=== PATIENT | male | born 1935 | race Hispanic/Latino ===

== ENCOUNTER 2020-05-09 10:31 | Inpatient (IN) | payer OTHER ==
[~2020-05-09] VITALS: Ht 162.6 cm; Wt 82.6 kg
[2020-05-09] VITALS (9 sets, daily range): BP systolic 142–167; BP diastolic 78–104
[2020-05-09 11:12] LABS: CREATININE 1.4 mg/dL (0.5-1.5); POTASSIUM 4.1 mmol/L (3.5-5.1)
[2020-05-09 11:14] LABS: BASOPHILS % (AUTO) 0.1 % (0.0-5.0); HEMATOCRIT 50.3 % (42-54); LYMPHOCYTES % (AUTO) 2.9 % (21.0-51.0); MEAN CORPUSCULAR HGB CONC 32.8 g/dL (32.0-36.0); MEAN CORPUSCULAR VOLUME 88.4 fL (79-99); MONOCYTES % (AUTO) 1.2 % (3.0-13.0); NEUTROPHILS % (AUTO) 95.4 % (40.0-77.0); PLATELET COUNT (AUTO) 150 K/uL (130-400); RED BLOOD CELL COUNT(AUTO) 5.69 MIL/uL (4.50-6.20); RED CELL DISTRIBUTION WIDTH 16.5 % (11.0-15.5); WHITE BLOOD COUNT (AUTO) 11.8 K/uL (4.8-10.8)
[2020-05-09 11:19] LABS: ALBUMIN 3.2 g/dL (3.5-5.0); BILIRUBIN,TOTAL 0.8 mg/dL (0.2-1.0); TOTAL PROTEIN, SERUM 8.2 g/dL (6.0-8.3)
[2020-05-09] MEDS ORDERED: METHYLPREDNISOLONE SOD SUCC 40MG/ML 1ML ONE (11:47)
[2020-05-09] MEDS ORDERED: ENOXAPARIN SODIUM 80 MG/0.8 ML SQ ONE (11:47)
[2020-05-09] MEDS ORDERED: LABETALOL 20 MG/4 ML DISP.SYRIN IV PRN (12:15)
[2020-05-09] MEDS ORDERED: LOPERAMIDE 1 MG/7.5 ML UDCUP PO PRN (12:15)
[2020-05-09] MEDS: FUROSEMIDE 10 MG/ML 4ML VIAL IV SCH (12:15)
[2020-05-09] MEDS ORDERED: HYDRALAZINE HCL 20 MG/ML VIAL IV PRN (12:15)
[2020-05-09] MEDS ORDERED: LACTULOSE 20 GM/30 ML UDCUP PO PRN (12:15)
[2020-05-09] MEDS: DOXYCYCLINE 100MG+NS 250ML IV SCH (12:15)
[2020-05-09] MEDS ORDERED: ACETAMINOPHEN 325 MG TAB PO PRN (12:15)
[2020-05-09] MEDS: CEFTRIAXONE SODIUM 1 GM IVP SCH (12:15)
[2020-05-09] MEDS ORDERED: ONDANSETRON HCL 4 MG/2 ML VIAL IVP PRN (12:15)
[2020-05-09] MEDS ORDERED: FUROSEMIDE 10 MG/ML 4ML VIAL ONE (12:26)
[2020-05-09] MEDS ORDERED: DOXYCYCLINE 100MG+NS 250ML 250 ML IV ONE (12:26)
[2020-05-09] MEDS ORDERED: CEFTRIAXONE SODIUM 1 GM ONE (12:27)
[2020-05-09 12:34] LABS: BASOPHILS % (AUTO) 0.2 % (0.0-5.0); EOSINOPHILS % (AUTO) 1.3 % (0.0-8.0); HEMATOCRIT 46.3 % (42-54); LYMPHOCYTES % (AUTO) 2.4 % (21.0-51.0); MEAN CORPUSCULAR HEMOGLOBIN 29.2 pg (27.0-33.0); MEAN CORPUSCULAR HGB CONC 33.3 g/dL (32.0-36.0); MEAN CORPUSCULAR VOLUME 87.9 fL (79-99); MONOCYTES % (AUTO) 2.3 % (3.0-13.0); NEUTROPHILS % (AUTO) 93.4 % (40.0-77.0); PLATELET COUNT (AUTO) 132 K/uL (130-400); RED BLOOD CELL COUNT(AUTO) 5.27 MIL/uL (4.50-6.20); RED CELL DISTRIBUTION WIDTH 16.5 % (11.0-15.5); WHITE BLOOD COUNT (AUTO) 12.7 K/uL (4.8-10.8)
[2020-05-09 12:49] LABS: ALANINE AMINOTRANSFERASE 23 U/L (12-78); ALBUMIN 2.9 g/dL (3.5-5.0); ASPARTATE AMINOTRANSFERASE 27 U/L (10-37); BILIRUBIN,DIRECT 0.3 mg/dL (0.0-0.3); BILIRUBIN,TOTAL 0.6 mg/dL (0.2-1.0); CARBON DIOXIDE 32 mmol/L (21-32); CHLORIDE 102 mmol/L (101-111); CREATININE 1.4 mg/dL (0.5-1.5); GLOMERULAR FILTR. RATE CALC 51 mL/min (>60); GLUCOSE,RANDOM 153 mg/dL (70-105); PHOSPHORUS 2.9 mg/dL (2.5-4.9); SODIUM SERUM 137 mmol/L (136-145); TOTAL PROTEIN, SERUM 7.5 g/dL (6.0-8.3); UREA NITROGEN, BLOOD 28 mg/dL (7-18)
[2020-05-09 13:30] LABS: ABG BASE EXCESS -0.1 mmol/L (-2.0-3.0); ABG HCO3 24.3 mmol/L (21.0-28.0); ABG OXYGEN SATURATION 89.7 % (95.0-99.0); ABG PCO2 39 mmHg (35-48)
[2020-05-09 13:52] LABS: B-TYPE NATRIURETIC PEPTIDE 503 pg/mL (0-100)
[2020-05-09] MEDS ORDERED: AMLO2.5T2 PO (16:16)
[2020-05-09] MEDS ORDERED: PREG75CA75 PO (16:16)
[2020-05-09] MEDS ORDERED: LORA10TA7 PO (16:16)
[2020-05-09] MEDS ORDERED: APIX5TAB PO (16:16)
[2020-05-09] MEDS ORDERED: MONT10TA26 PO (16:16)
[2020-05-09] MEDS ORDERED: LISI-617 PO (16:16)
[2020-05-09] MEDS ORDERED: ASCO500T20 PO (16:16)
[2020-05-09] MEDS ORDERED: FURO20TA4 PO (16:16)
[2020-05-09] MEDS ORDERED: SIMV-43 PO (16:16)
[2020-05-09] MEDS ORDERED: ZINC50TA71 PO (16:16)
[2020-05-09] MEDS ORDERED: TAMS-1 PO (16:16)
[2020-05-09] MEDS ORDERED: LEVO25TA54 PO (16:16)
[2020-05-09] MEDS ORDERED: PANT40TA54 PO (16:16)
[2020-05-09] MEDS ORDERED: METH4TAB15 PO (16:16)
[2020-05-09] MEDS ORDERED: PHARMACY COMMUNICATION**REMDESIVIR ORDER MISC SCH (18:30)
[2020-05-09] MEDS: SIMVASTATIN 20 MG TABLET PO SCH (20:10)
[2020-05-09] MEDS: DILTIAZEM HCL 5 MG/ML 10 ML VIAL IV SCH (20:10)
[2020-05-09] MEDS: ENOXAPARIN SODIUM 40 MG/0.4 ML SYRINGE SQ SCH (20:10)
[2020-05-09] MEDS: FAMOTIDINE 20MG TAB 20 MG TAB PO SCH (20:10)
[2020-05-09] MEDS: DILTIAZEM HCL 125 MG/25 ML 125 MG in SODIUM CHLORIDE 0.9% 100 ML IV SCH (21:47)
--- NOTE | 2020-05-09 21:49 | NUR ---
scot khan i started the drip at 2019. heart rate was 115
[2020-05-10] VITALS (55 sets, daily range): BP systolic 113–171; BP diastolic 54–102
[2020-05-10] MEDS: DOXYCYCLINE 100MG+NS 250ML IV SCH (00:15)
[2020-05-10] MEDS ORDERED: DOXYCYCLINE HYCLATE 100 MG TABLET PO ONE (00:19)
[2020-05-10] MEDS: CEFTRIAXONE SODIUM 1 GM IVP SCH ×2 (00:32→12:15)
[2020-05-10] MEDS: FUROSEMIDE 10 MG/ML 4ML VIAL IV SCH (00:32)
--- NOTE | 2020-05-10 02:37 | NUR ---
assessment pt. is alert and oriented times 4 no complaints of any pain. patient is on 15 liters nonrebreather sating 91% when prone sating 96%. During shift change the patient converted to afib in the 130's. I gave a 10mgs of cardizem IV push and started a 5 mg cardizem drip at 2020. at 0230 blood pressure is up to 169 systolic 94 diastolic, heart rate 105 so I have increase the cardizem to 10mg an hour. patient very anxious. hourly blood pressures taken.
[2020-05-10 06:12] LABS: CREATININE 1.4 mg/dL (0.5-1.5); POTASSIUM 3.8 mmol/L (3.5-5.1)
[2020-05-10] MEDS: LISINOPRIL 5 MG TABLET PO SCH (07:38)
[2020-05-10] MEDS: MONTELUKAST SODIUM 10 MG TAB PO SCH (07:38)
[2020-05-10] MEDS: FAMOTIDINE 20MG TAB 20 MG TAB PO SCH ×2 (07:39→22:38)
[2020-05-10] MEDS: AMLODIPINE BESYLATE 2.5 MG TAB PO SCH (07:39)
[2020-05-10] MEDS: PREGABALIN 75 MG CAPSULE PO SCH (07:39)
[2020-05-10] MEDS: LORATADINE 10 MG TABLET PO SCH (07:39)
[2020-05-10] MEDS: LEVOTHYROXINE 25 MCG TABLET PO SCH (07:40)
[2020-05-10] MEDS: ASCORBIC ACID 500 MG TAB PO SCH (07:40)
[2020-05-10] MEDS: DEXAMETHASONE SOD PHOSPHATE 4 MG/ML 1ML VIAL IVP SCH (07:50)
[2020-05-10] MEDS: ENOXAPARIN SODIUM 40 MG/0.4 ML SYRINGE SQ SCH ×2 (07:50→22:38)
--- NOTE | 2020-05-10 08:03 | NUR ---
Report given to Paz BHAGAT, Pt currently in stable condition. Bipap in place pt 02 sat at 81% MD and Rt aware, Morning po meds held. Pt transfered to ICU to room 217. Pt in stable condition
--- NOTE | 2020-05-10 08:30 | NUR ---
CARE ACCEPTED REPORT RECEIVED FROM JEN BHAGAT. PT IN RM 217. PT IS A&OX3. VSS. RR ARE EVEN AND NON-LABORED ON BIPAP 07/05 100%. SPO2 87%. PT ATTACHED TO THE [place] MACHINE OPERATOR SHOWING A-FIB RATE 94. CARDIZEM INFUSING AT 10 ML/HR VIA 18 G RAC. SKIN IS W/D/I. BED IS LOCKED & IN THE LOWEST POSITION. SIDE RAILS UP X 2. URINAL WITHIN REACH. CALL LIGHT WITHIN REACH. NAD IS NOTED AT THIS TIME. WILL CONTINUE TO MONITOR PT FOR ANY CHANGES.
[2020-05-10] MEDS: DOXYCYCLINE 100MG+NS 250ML 250 ML IV SCH ×2 (09:00→22:38)
[2020-05-10] MEDS: DILTIAZEM HCL 125 MG/25 ML 125 MG in SODIUM CHLORIDE 0.9% 100 ML IV SCH (10:47)
--- NOTE | 2020-05-10 11:09 | NUR ---
INTUBATION NOTIFIED PT THAT THE [place] MACHINE OPERATOR SPOKE WITH HIS JUDI AND WAS GIVEN AN UPDATE. PER THE [place] MACHINE OPERATOR STATED THAT HE WANTS TO LEAVE AMA. IT WAS EXPLAINED TO THE THAT HE WILL EVENTUALLY NEED TO BE INTUBATED TO PREVENT ANY FURTHER DAMAGE TO THE LUNGS. STATED THAT SHE NEEDED TO TALK TO HER CHILDREN 1ST. PT STATED THAT HE WILL NOT BE INTUBATED AND DOES NOT WANT TO BE INTUBATED. AWAITING TO HEAR BACK FROM AT THIS TIME.
--- NOTE | 2020-05-10 16:15 | NUR ---
CODE STATUS PT STATED THAT HE DOES NOT WANT TO BE INTUBATED. SPOKE WITH THE AND SHE STATED THAT THE FAMILY WANTS HIM TO BE INTUBATED IF HE NEEDS IT. I EXPLAINED THAT THE PATIENT IS IN THE RIGHT MIND TO MAKE HIS DECISION. I EXPLAINED TO THE PATIENT ABOUT A DNR AND HE STATED HE DID NOT WANT TO SIGN A DNR
--- NOTE | 2020-05-10 19:00 | NUR ---
[facility] CM spoke to pt, unable to answer questions at this time, pt is hard hearing, requested to have spouse called. Called spouse, spoke to Yaneth Wynne [phone], discussed dc plans. As per spouse pt is independent prior to admission, lives at home with spouse and son. Pt has a walker, oxygen equipments through [facility], cpap, nebulizer machine, currently seeing Dr Tai. Denies any other equipments/services. Feels safe to go back home, spouse and son able to assist with transportation and needs as necessary. DC plan to home once stable. CM to cont to follow up. Per spouse current addr: [address] [place] [address], faxed update to registration. Addendum: 05/10/20 at 1903 by GREGORY NARAYAN LVN CM Amended: Links added.
[2020-05-10] MEDS: DILTIAZEM HCL 5 MG/ML 10 ML VIAL IV SCH (19:30)
[2020-05-10] MEDS: SIMVASTATIN 20 MG TABLET PO SCH (22:38)
[2020-05-11] VITALS (61 sets, daily range): BP systolic 118–180; BP diastolic 63–110
[2020-05-11 04:00] LABS: ABG BASE EXCESS 1.5 mmol/L (-2.0-3.0); ABG HCO3 25.4 mmol/L (21.0-28.0); ABG OXYGEN SATURATION 82.9 % (95.0-99.0); ABG PCO2 38 mmHg (35-48)
[2020-05-11 04:19] LABS: BASOPHILS % (AUTO) 0.1 % (0.0-5.0); LYMPHOCYTES % (AUTO) 1.4 % (21.0-51.0); MEAN CORPUSCULAR HGB CONC 33.4 g/dL (32.0-36.0); MONOCYTES % (AUTO) 2.4 % (3.0-13.0); NEUTROPHILS % (AUTO) 94.4 % (40.0-77.0); PLATELET COUNT (AUTO) 172 K/uL (130-400); RED BLOOD CELL COUNT(AUTO) 5.75 MIL/uL (4.50-6.20); RED CELL DISTRIBUTION WIDTH 16.9 % (11.0-15.5); WHITE BLOOD COUNT (AUTO) 15.1 K/uL (4.8-10.8)
[2020-05-11 04:36] LABS: ALBUMIN 2.4 g/dL (3.5-5.0); BILIRUBIN,TOTAL 0.9 mg/dL (0.2-1.0); CREATININE 1.4 mg/dL (0.5-1.5); MAGNESIUM 2.2 mg/dL (1.80-2.40); PHOSPHORUS 2.9 mg/dL (2.5-4.9); POTASSIUM 4.3 mmol/L (3.5-5.1); TOTAL PROTEIN, SERUM 7.2 g/dL (6.0-8.3)
[2020-05-11] MEDS: DEXAMETHASONE SOD PHOSPHATE 4 MG/ML 1ML VIAL IVP SCH (09:59)
[2020-05-11] MEDS: DOXYCYCLINE 100MG+NS 250ML 250 ML IV SCH ×2 (09:59→20:24)
[2020-05-11] MEDS: ENOXAPARIN SODIUM 40 MG/0.4 ML SYRINGE SQ SCH ×2 (10:00→20:25)
[2020-05-11] MEDS: LEVOTHYROXINE 25 MCG TABLET PO SCH (10:00)
[2020-05-11] MEDS: FAMOTIDINE 20MG TAB 20 MG TAB PO SCH ×2 (10:00→20:24)
[2020-05-11] MEDS: LORATADINE 10 MG TABLET PO SCH (10:00)
[2020-05-11] MEDS: AMLODIPINE BESYLATE 2.5 MG TAB PO SCH (10:00)
[2020-05-11] MEDS: MONTELUKAST SODIUM 10 MG TAB PO SCH (10:00)
[2020-05-11] MEDS: ASCORBIC ACID 500 MG TAB PO SCH (10:00)
[2020-05-11] MEDS: PREGABALIN 75 MG CAPSULE PO SCH (10:00)
[2020-05-11] MEDS: LISINOPRIL 5 MG TABLET PO SCH (10:00)
--- NOTE | 2020-05-11 19:00 | NUR ---
ACCEPTED CARE ACCEPTED CARE REPORT RECEIVED USING SBAR FORMAT
[2020-05-11] MEDS: CEFTRIAXONE SODIUM 1 GM IVP SCH ×2 (20:25→20:28)
[2020-05-11] MEDS: SIMVASTATIN 20 MG TABLET PO SCH (20:25)
[2020-05-11] MEDS: DILTIAZEM HCL 125 MG/25 ML 125 MG in SODIUM CHLORIDE 0.9% 100 ML IV SCH (21:33)
[2020-05-12] VITALS (44 sets, daily range): BP systolic 110–192; BP diastolic 46–109
--- NOTE | 2020-05-12 03:15 | NUR ---
QUESTIONABLE ASPIRATION FOUND PATIENT WITH BIPAP MASK OFF. BREATH SOUNDS ARE RHONCHORUS AND COURSE. SUCTIONED FOR A MODERATE AMOUNT OF THIN PINK SECRETIONS. BED IS WET AND A CUP IS ON THE FLOOR. O2 SATS ARE IN THE 60 -70 'S BUT SPO2 PROBE APPEARS TO BE DAMAGED. HEART RATE IS IN THE ONE TEENS, RHYTHM IS AFIB. SPO2 PROBE REPLACED AFTER BIPAP MASK IS SECURED TO PATIENTS FACE AND HE IS REPOSITIONED. SPO2 PROBE SHOW OXYGEN SATURATIONS IN THE HIGH 70'S LOW 80'S. RESPIRATORY MADE BIPAP ADJUSTMENTS IN AN EFFORT TO INCREASE SPO2 LEVELS. WILL MONITOR CLOSELY FOR FURTHER DECLINE. AFTER BIPAP ADJUSTMENTS PATIENT APPEARS TO BE RETURNING TO CLOSE TO BASELINE.
[2020-05-12] MEDS: DEXAMETHASONE SOD PHOSPHATE 4 MG/ML 1ML VIAL IVP SCH (10:07)
[2020-05-12] MEDS: ENOXAPARIN SODIUM 40 MG/0.4 ML SYRINGE SQ SCH ×2 (10:07→20:15)
[2020-05-12] MEDS: DOXYCYCLINE 100MG+NS 250ML 250 ML IV SCH ×2 (10:07→20:13)
[2020-05-12] MEDS: ASCORBIC ACID 500 MG TAB PO SCH (10:09)
[2020-05-12] MEDS: PREGABALIN 75 MG CAPSULE PO SCH (10:09)
[2020-05-12] MEDS: LEVOTHYROXINE 25 MCG TABLET PO SCH (10:09)
[2020-05-12] MEDS: AMLODIPINE BESYLATE 2.5 MG TAB PO SCH (10:09)
[2020-05-12] MEDS: FAMOTIDINE 20MG TAB 20 MG TAB PO SCH ×2 (10:10→20:14)
[2020-05-12] MEDS: LISINOPRIL 5 MG TABLET PO SCH (10:10)
[2020-05-12] MEDS: MONTELUKAST SODIUM 10 MG TAB PO SCH (10:12)
[2020-05-12] MEDS: LORATADINE 10 MG TABLET PO SCH (10:12)
[2020-05-12] MEDS: CEFTRIAXONE SODIUM 1 GM IVP SCH (12:07)
--- NOTE | 2020-05-12 19:00 | NUR ---
ACCEPTED CARE ACCEPTED CARE REPORT RECEIVED USING SBAR FORMAT
[2020-05-12] MEDS: LORAZEPAM 2 MG/ML 1 ML VIAL IVP PRN (20:12)
[2020-05-12] MEDS: MORPHINE SULFATE 2 MG/ML 1ML SYG IVP PRN (20:13)
[2020-05-12] MEDS: SIMVASTATIN 20 MG TABLET PO SCH (20:14)
[2020-05-13] VITALS (13 sets, daily range): BP systolic 91–142; BP diastolic 51–95
[2020-05-13] MEDS: CEFTRIAXONE SODIUM 1 GM IVP SCH ×3 (00:02→21:23)
[2020-05-13 03:45] LABS: BASOPHILS % (AUTO) 0.2 % (0.0-5.0); EOSINOPHILS % (AUTO) 0.7 % (0.0-8.0); HEMATOCRIT 47.8 % (42-54); LYMPHOCYTES % (AUTO) 2.8 % (21.0-51.0); MEAN CORPUSCULAR HEMOGLOBIN 29.1 pg (27.0-33.0); MEAN CORPUSCULAR HGB CONC 33.3 g/dL (32.0-36.0); MEAN CORPUSCULAR VOLUME 87.4 fL (79-99); NEUTROPHILS % (AUTO) 92.7 % (40.0-77.0); PLATELET COUNT (AUTO) 118 K/uL (130-400); RED BLOOD CELL COUNT(AUTO) 5.47 MIL/uL (4.50-6.20); RED CELL DISTRIBUTION WIDTH 17.9 % (11.0-15.5); WHITE BLOOD COUNT (AUTO) 16.5 K/uL (4.8-10.8)
[2020-05-13 04:07] LABS: ALBUMIN 2.1 g/dL (3.5-5.0); CREATININE 1.5 mg/dL (0.5-1.5); MAGNESIUM 3.3 mg/dL (1.80-2.40); TOTAL PROTEIN, SERUM 6.9 g/dL (6.0-8.3)
[2020-05-13] MEDS: MORPHINE SULFATE 2 MG/ML 1ML SYG IVP PRN ×3 (04:18→18:02)
[2020-05-13] MEDS: LORAZEPAM 2 MG/ML 1 ML VIAL IVP PRN ×2 (04:18→15:42)
--- NOTE | 2020-05-13 05:30 | NUR ---
REPORT GIVEN REPORT GIVEN USING SBAR FORMAT. PATIENT TRANSFERRED TO [facility] WITH RT AND 2 RNS. TOLERATED WITHOUT DIFFICULTY.
[2020-05-13] MEDS ORDERED: COMPOUND IV REFRIGERATED 1 EACH IVSOLN MISC PRN (07:00)
[2020-05-13] MEDS: MONTELUKAST SODIUM 10 MG TAB PO SCH (09:00)
[2020-05-13] MEDS: LORATADINE 10 MG TABLET PO SCH (09:00)
[2020-05-13] MEDS: FAMOTIDINE 20MG TAB 20 MG TAB PO SCH ×2 (09:00→21:00)
[2020-05-13] MEDS: LEVOTHYROXINE 25 MCG TABLET PO SCH (09:00)
[2020-05-13] MEDS: PREGABALIN 75 MG CAPSULE PO SCH (09:00)
[2020-05-13] MEDS: ASCORBIC ACID 500 MG TAB PO SCH (09:00)
[2020-05-13] MEDS: LISINOPRIL 5 MG TABLET PO SCH (09:00)
[2020-05-13] MEDS ORDERED: REMDESIVIR (EUA) 520 200 MG in SODIUM CHLORIDE 0.9% 250 ML IV SCH (09:00)
[2020-05-13] MEDS: AMLODIPINE BESYLATE 2.5 MG TAB PO SCH (09:00)
[2020-05-13] MEDS: DOXYCYCLINE 100MG+NS 250ML 250 ML IV SCH ×2 (09:59→21:23)
[2020-05-13] MEDS: DEXAMETHASONE SOD PHOSPHATE 4 MG/ML 1ML VIAL IVP SCH (09:59)
[2020-05-13] MEDS: ENOXAPARIN SODIUM 40 MG/0.4 ML SYRINGE SQ SCH ×2 (10:03→21:24)
[2020-05-13] MEDS: DEXTROSE 5%-WATER 1,000 ML IV SCH (12:31)
--- NOTE | 2020-05-13 16:30 | NUR ---
REPOSITIONED FOR COMFORT. BIPAP REMAINS IN PLACE. SITTER MONITORING PT.
--- NOTE | 2020-05-13 16:48 | NUR ---
RECEIVED CALL FROM PT.'S SPOUSE, JUDI GAMINO, WHO STATES SHE SPOKE WITH HER SON, JOHN GAMINO. PER PT.'S SPOUSE, JOHN GAMINO SPOKE WITH WITH Gretchen GARCIA NP RE:NGT TUBE PLACEMENT FOR TUBE FEEDINGS VS HOSPICE. Lily GAMINO STATES SHE WISHES PT. TO RECEIVE TUBE FEEDINGS VIA NGT, NO HOSPICE AT PRESENT TIME.
[2020-05-13] MEDS: DILTIAZEM HCL 60 MG TABLET NG SCH ×2 (18:30→21:24)
--- NOTE | 2020-05-13 18:45 | NUR ---
RR-35/MIN. ATTEMPTED TO PLACE 14 FR. NGT TO LEFT NARE. UNSUCCESSFUL. PLACED BACK ON BIPAP WITH SAME SETTINGS.
[2020-05-13] MEDS ORDERED: DILTIAZEM HCL 5 MG/ML 10 ML VIAL IV SCH (20:30)
[2020-05-13] MEDS: SIMVASTATIN 20 MG TABLET PO SCH (21:00)
[2020-05-13] MEDS: DILTIAZEM HCL 125 MG/25 ML 125 MG in SODIUM CHLORIDE 0.9% 100 ML IV SCH (22:27)
[2020-05-14] VITALS (8 sets, daily range): BP systolic 105–146; BP diastolic 60–93
[2020-05-14] MEDS: DILTIAZEM HCL 125 MG/25 ML 125 MG in SODIUM CHLORIDE 0.9% 100 ML IV SCH ×4 (00:12→18:37)
[2020-05-14] MEDS: LORAZEPAM 2 MG/ML 1 ML VIAL IVP PRN ×3 (01:40→17:44)
[2020-05-14] MEDS: DILTIAZEM HCL 60 MG TABLET NG SCH ×3 (05:37→18:20)
[2020-05-14 06:09] LABS: BASOPHILS % (AUTO) 0.3 % (0.0-5.0); EOSINOPHILS % (AUTO) 0.1 % (0.0-8.0); HEMATOCRIT 54.1 % (42-54); LYMPHOCYTES % (AUTO) 3.5 % (21.0-51.0); MEAN CORPUSCULAR HEMOGLOBIN 28.5 pg (27.0-33.0); MEAN CORPUSCULAR HGB CONC 33.1 g/dL (32.0-36.0); MEAN CORPUSCULAR VOLUME 86.1 fL (79-99); MONOCYTES % (AUTO) 2.9 % (3.0-13.0); NEUTROPHILS % (AUTO) 92.2 % (40.0-77.0); NUCLEATED RED BLOOD CELLS 0.3 % (0.0-0.19); PLATELET COUNT (AUTO) 70 K/uL (130-400); RED BLOOD CELL COUNT(AUTO) 6.28 MIL/uL (4.50-6.20); WHITE BLOOD COUNT (AUTO) 19.8 K/uL (4.8-10.8)
[2020-05-14 06:40] LABS: ALBUMIN 2.2 g/dL (3.5-5.0); BILIRUBIN,TOTAL 1.4 mg/dL (0.2-1.0); CREATININE 1.6 mg/dL (0.5-1.5); MAGNESIUM 3.5 mg/dL (1.80-2.40); PHOSPHORUS 3.3 mg/dL (2.5-4.9); POTASSIUM 4.3 mmol/L (3.5-5.1); TOTAL PROTEIN, SERUM 6.9 g/dL (6.0-8.3)
[2020-05-14] MEDS: AMLODIPINE BESYLATE 2.5 MG TAB PO SCH (07:38)
[2020-05-14] MEDS: FAMOTIDINE 20MG TAB 20 MG TAB PO SCH ×2 (07:39→21:00)
[2020-05-14] MEDS: LISINOPRIL 5 MG TABLET PO SCH (07:39)
[2020-05-14] MEDS: LORATADINE 10 MG TABLET PO SCH (07:39)
[2020-05-14] MEDS: MONTELUKAST SODIUM 10 MG TAB PO SCH (07:39)
[2020-05-14] MEDS: PREGABALIN 75 MG CAPSULE PO SCH (07:39)
[2020-05-14] MEDS: LEVOTHYROXINE 25 MCG TABLET PO SCH (07:39)
[2020-05-14] MEDS: ASCORBIC ACID 500 MG TAB PO SCH (07:39)
[2020-05-14] MEDS: DEXAMETHASONE SOD PHOSPHATE 4 MG/ML 1ML VIAL IVP SCH (07:59)
[2020-05-14] MEDS: DOXYCYCLINE 100MG+NS 250ML 250 ML IV SCH ×2 (07:59→22:07)
[2020-05-14] MEDS: DEXTROSE 5%-WATER 1,000 ML IV SCH (08:08)
[2020-05-14] MEDS ORDERED: REMDESIVIR (EUA) 520 100 MG in SODIUM CHLORIDE 0.9% 250 ML IV SCH (09:00)
[2020-05-14] MEDS: ENOXAPARIN SODIUM 40 MG/0.4 ML SYRINGE SQ SCH (09:00)
--- NOTE | 2020-05-14 09:46 | NUR ---
PLT COUNT DOWN TO 70K. WILL CONFIRM WITH ATTENDING MD RE:ADMINISTRATION OF LOVENOX AT SCHEDULED DOSE.
[2020-05-14] MEDS: MORPHINE SULFATE 2 MG/ML 1ML SYG IVP PRN ×2 (09:52→15:56)
[2020-05-14] MEDS: CEFTRIAXONE SODIUM 1 GM IVP SCH (11:51)
--- NOTE | 2020-05-14 13:42 | NUR ---
DR. Sandy RESTREPO IN ROOM ASSESSING PT. AND MAKING CHANGES TO BIPAP. DR. RESTREPO UPDATED ON PT.'S STATUS, ORDERS AND FAMILY'S WISHES BY THIS NURSE, VERBALIZED UNDERSTANDING.
--- NOTE | 2020-05-14 15:58 | NUR ---
NOTIFIED DR. RESTREPO RE:PT. WITH ELEVATED TEMP.
[2020-05-14] MEDS ORDERED: CEFEPIME HCL 1 GM VIAL IVP SCH (17:00)
[2020-05-14] MEDS ORDERED: ACETAMINOPHEN 650 MG SUPPOSITORY RC ONE (17:04)
--- NOTE | 2020-05-14 17:20 | NUR ---
IN AND OUT CATH PERFORMED WITH USE OF 12FR COUDET CATHETER UNDER STERILE TECHNIQUE. PT. TOLERATED.
[2020-05-14 17:47] LABS: APPEARANCE,URINE Cloudy (CLEAR); BILIRUBIN,URINE Negative (NEGATIVE); COLOR,URINE Dark Yellow (YELLOW); GLUCOSE, URINE (UA) Negative (NEGATIVE); KETONES,URINE Negative (NEGATIVE); LEUKOCYTE ESTERASE ,URINE Negative (NEGATIVE); NITRATE,URINE Negative (NEGATIVE); OCCULT BLOOD,URINE Negative (NEGATIVE); PROTEIN,URINE POS 2+ mg/dL (NEGATIVE); UROBILINOGEN,URINE 0.2 mg/dL (0.2-1.0)
[2020-05-14 17:56] LABS: AMORPHOUS SEDIMENT,UR Moderate /LPF (None Seen); BACTERIA,URINE Rare /HPF (None Seen); RBC,URINE 0-1 /HPF (0-1); SQUAMOUS EPITHELIAL CELL,UR 0-2 /HPF (0-2); WBC,URINE 0-1 /HPF (0-1)
[2020-05-14] MEDS: SIMVASTATIN 20 MG TABLET PO SCH (21:00)
[2020-05-14] MEDS: ACETAMINOPHEN 650 MG SUPPOSITORY RC PRN (22:07)
[2020-05-15] MEDS: DILTIAZEM HCL 60 MG TABLET NG SCH ×5 (00:03→20:40)
[2020-05-15] MEDS: DEXTROSE 5%-WATER 1,000 ML IV SCH ×2 (03:05→23:15)
[2020-05-15 03:31] VITALS: BP 105/71
[2020-05-15 06:05] LABS: BASOPHILS % (AUTO) 0.3 % (0.0-5.0); EOSINOPHILS % (AUTO) 0.1 % (0.0-8.0); HEMATOCRIT 51.5 % (42-54); LYMPHOCYTES % (AUTO) 3.2 % (21.0-51.0); MEAN CORPUSCULAR HEMOGLOBIN 29.4 pg (27.0-33.0); MEAN CORPUSCULAR HGB CONC 32.8 g/dL (32.0-36.0); MEAN CORPUSCULAR VOLUME 89.6 fL (79-99); MONOCYTES % (AUTO) 3.2 % (3.0-13.0); NEUTROPHILS % (AUTO) 91.6 % (40.0-77.0); NUCLEATED RED BLOOD CELLS 0.3 % (0.0-0.19); RED BLOOD CELL COUNT(AUTO) 5.75 MIL/uL (4.50-6.20); RED CELL DISTRIBUTION WIDTH 20.3 % (11.0-15.5); WHITE BLOOD COUNT (AUTO) 23.2 K/uL (4.8-10.8)
[2020-05-15 06:27] LABS: ALBUMIN 2.2 g/dL (3.5-5.0); BILIRUBIN,DIRECT 0.8 mg/dL (0.0-0.3); BILIRUBIN,TOTAL 2.2 mg/dL (0.2-1.0); CREATININE 2.2 mg/dL (0.5-1.5); POTASSIUM 4.9 mmol/L (3.5-5.1); TOTAL PROTEIN, SERUM 6.3 g/dL (6.0-8.3)
--- NOTE | 2020-05-15 06:48 | NUR ---
CRITICAL LAB VALUES RESULTED AT 0645. DOCTOR CALLED AT 0649. AWAITING CALL BACK.
[2020-05-15 08:00] VITALS: BP 102/71
--- NOTE | 2020-05-15 08:05 | NUR ---
ASSESSMENT CALL PLACED TO [facility] REGARDING PT'S STATUS, SPOKE TO ROSANNA LINDSEY, MADE AWARE OF LABS
[2020-05-15 08:44] LABS: PLATELET COUNT (AUTO) 21 K/uL (130-400)
[2020-05-15] MEDS: ASCORBIC ACID 500 MG TAB PO SCH (09:00)
[2020-05-15] MEDS ORDERED: CEFEPIME HCL 1 GM VIAL IVP SCH (09:00)
[2020-05-15] MEDS: LEVOTHYROXINE 25 MCG TABLET PO SCH (09:00)
[2020-05-15] MEDS: LISINOPRIL 5 MG TABLET PO SCH (09:00)
[2020-05-15] MEDS: AMLODIPINE BESYLATE 2.5 MG TAB PO SCH (09:00)
[2020-05-15] MEDS: PREGABALIN 75 MG CAPSULE PO SCH (09:00)
[2020-05-15] MEDS: MONTELUKAST SODIUM 10 MG TAB PO SCH (09:00)
[2020-05-15] MEDS: LORATADINE 10 MG TABLET PO SCH (09:00)
[2020-05-15] MEDS: DEXAMETHASONE SOD PHOSPHATE 4 MG/ML 1ML VIAL IVP SCH (09:28)
[2020-05-15] MEDS: DOXYCYCLINE 100MG+NS 250ML 250 ML IV SCH (09:29)
--- NOTE | 2020-05-15 09:45 | NUR ---
GREGORY LINDSEY FROM [facility] HERE TO SEE PT, SPOKE TO FAMILY VIA TELEPHONE
[2020-05-15] MEDS: FAMOTIDINE 20MG TAB 20 MG TAB PO SCH ×2 (09:48→20:40)
[2020-05-15] MEDS: DILTIAZEM HCL 125 MG/25 ML 125 MG in SODIUM CHLORIDE 0.9% 100 ML IV SCH (10:13)
[2020-05-15 12:00] VITALS: BP 84/32
--- NOTE | 2020-05-15 12:00 | NUR ---
FAMILY CALL PLACED TO SPOUSE TO MAKE AWARE OF PT'S STATUS, MADE AWARE PT'S BP DROPPING AND PT NON-RESPONSIVE TO VERBAL STIMULATION. SPOUSE REQUESTED TO VISIT PT, BUT THEN STATED NO SINCE PT NO RESPONSIVE. MADE AWARE ZOOM CAN BE USED, STATED NO AT THIS TIME. SPOUSE STATES TO KEEP PT COMFORTABLE AND TO NOTIFY HER WHEN "GOD" TAKES HIM.
--- NOTE | 2020-05-15 12:51 | NUR ---
[facility] STATUS REPORT GIVEN TO ROSANNA LINDSEY AT FROM [facility]
[2020-05-15] MEDS: MORPHINE SULFATE 2 MG/ML 1ML SYG IVP PRN ×3 (13:57→21:57)
--- NOTE | 2020-05-15 14:00 | NUR ---
ASSESSMENT PT MEDICATED WITH MORPHINE 2MG IV FOR RESPIRATORY DISTRESS, RESPIRATION RATE 42, SHALLOW AND LABORED. PT CONTINUES WITH BIPAP, RT IN ASSESS PT. POSITIONED FOR COMFORT Q 2 HOURS AND NEEDED
--- NOTE | 2020-05-15 14:45 | NUR ---
RESPIRATIONS PT REMAINS NON-VERBAL AND UNRESPONSIVE, RESPIRATION RATE 32-38, CONTINUES ON BIPAP. POSITIONED FOR COMFORT, NO SIGNS OF PAIN , TELEMETRY MONITORING.
[2020-05-15 16:00] VITALS: BP 109/85
[2020-05-15 20:26] VITALS: BP 110/64
[2020-05-15] MEDS: SIMVASTATIN 20 MG TABLET PO SCH (20:40)
[2020-05-15] MEDS: ACETAMINOPHEN 650 MG SUPPOSITORY RC PRN (21:56)
[2020-05-16] VITALS (7 sets, daily range): BP systolic 87–127; BP diastolic 51–80
[2020-05-16] MEDS: MORPHINE SULFATE 2 MG/ML 1ML SYG IVP PRN ×4 (02:44→21:00)
[2020-05-16] MEDS: ACETAMINOPHEN 650 MG SUPPOSITORY RC PRN (04:14)
[2020-05-16] MEDS: DILTIAZEM HCL 60 MG TABLET NG SCH ×4 (05:38→20:40)
--- NOTE | 2020-05-16 05:39 | NUR ---
PATIENT TEMPERATURE ELEVATED THROUGH THE NIGHT. PT RECEIVED TYLENOL SUPP X2. TEMPERATURE REMAINS ELEVATED FOR 0400 VITAL SIGNS. MD AWARE. WILL CONTINUE TYLENOL SUPP AND COOLING MEASURES.
--- NOTE | 2020-05-16 08:00 | NUR ---
ASSESSMENT PATIENT UNRESPONSIVE TO VERBAL OR PAINFUL STIMULI. VSS. REMAINS ON BIPAP 05/07 100%. REPORT FROM NIGHT NURSE AND CHARGE NURSE THAT WANT COMFORT MEASURES, NO ORDER IN PLACE HAS BEEN RECEIVING MORPHINE FOR INCREASED RESP RATE
[2020-05-16] MEDS: AMLODIPINE BESYLATE 2.5 MG TAB PO SCH (09:00)
[2020-05-16] MEDS: ASCORBIC ACID 500 MG TAB PO SCH (09:00)
[2020-05-16] MEDS: FAMOTIDINE 20MG TAB 20 MG TAB PO SCH ×2 (09:00→20:40)
[2020-05-16] MEDS: PREGABALIN 75 MG CAPSULE PO SCH (09:00)
[2020-05-16] MEDS: LEVOTHYROXINE 25 MCG TABLET PO SCH (09:00)
[2020-05-16] MEDS: LORATADINE 10 MG TABLET PO SCH (09:00)
[2020-05-16] MEDS: MONTELUKAST SODIUM 10 MG TAB PO SCH (09:00)
--- NOTE | 2020-05-16 10:32 | NUR ---
RDSCREEN - LOS X 7 Tube Feeding notification received. Recommend initiate Trickle tube feedings of Vital AF 1.2 @15mls for 24 hours. Goal rate 35mls/hr Recommend free water Flush at 155mls Q6hrs Recommend to monitor Renal function and lab values Recommendations faxed to [facility], RN notified. NUTRITION NOTE Pt Admitted with COVID-19. Hx of DM, HTN, CHF. Pt with dysphagia, high risk for aspiration. Continues on BiPAP. Obesity Class I. Monitored labs: WBC 23.2, Na 162, Cl 124, BUN 124, Cr 2.2, GFR 30, BG 187, Alb 2.2. RD to continue to monitor. Please notify as additional nutrition concerns arise. Thank you. Addendum: 05/16/20 at [address] Amended: Links added.
[2020-05-16] MEDS: DEXAMETHASONE SOD PHOSPHATE 4 MG/ML 1ML VIAL IVP SCH (11:41)
[2020-05-16] MEDS: DEXTROSE 5%-WATER 1,000 ML IV SCH ×2 (14:17→20:40)
[2020-05-16] MEDS ORDERED: PHARMACY COMMUNICATION MISC SCH ×3 (18:15→19:15)
[2020-05-16] MEDS ORDERED: CLINIMIX E 4.25%-5% SOLUTION 2,000 ML IV SCH (18:45)
[2020-05-16] MEDS: STERILE WATER IV SCH (20:39)
[2020-05-16] MEDS: SODIUM CHLORIDE IV SCH (20:39)
[2020-05-16] MEDS: SIMVASTATIN 20 MG TABLET PO SCH (20:40)
[2020-05-16] MEDS: DILTIAZEM 125MG+100 ML NS 125 ML IV SCH (22:50)
[2020-05-17] MEDS: DILTIAZEM HCL 60 MG TABLET NG SCH ×5 (05:04→22:23)
[2020-05-17 05:05] VITALS: BP 122/77
[2020-05-17] MEDS: DILTIAZEM 125MG+100 ML NS 125 ML IV SCH ×2 (05:05→16:17)
[2020-05-17] MEDS: SODIUM CHLORIDE IV SCH ×3 (05:45→22:22)
[2020-05-17] MEDS: STERILE WATER IV SCH ×3 (05:45→22:22)
[2020-05-17 08:24] VITALS: BP 99/59
--- NOTE | 2020-05-17 08:30 | NUR ---
RESTING IN BED WITH HOB AT 30 DEGREES. EYES CLOSED. BIPAP IN PLACE, 14/10, FIO2 AT 100%. NONRESPONSIVE. RIGHT INDEX FINGER WITH DARK PURPLE TO BLACK DISCOLORATION. BILATERAL RADIAL AND ULNAR PULSES BY DOPPLER ONLY. RIGHT PLANTAR FOOT WITH PURPLE DISCOLORATION NOTED. COMPLETE ASSESSMENT DONE. CALL LIGHT WITHIN REACH. WAFFLE MATTRESS IN PLACE. REPOSITIONED FOR COMFORT.
[2020-05-17] MEDS: DEXAMETHASONE SOD PHOSPHATE 4 MG/ML 1ML VIAL IVP SCH (08:35)
[2020-05-17] MEDS: LORATADINE 10 MG TABLET PO SCH (08:36)
[2020-05-17] MEDS: MONTELUKAST SODIUM 10 MG TAB PO SCH (08:36)
[2020-05-17] MEDS: LEVOTHYROXINE 25 MCG TABLET PO SCH (08:36)
[2020-05-17] MEDS: AMLODIPINE BESYLATE 2.5 MG TAB PO SCH (08:36)
[2020-05-17] MEDS: FAMOTIDINE 20MG TAB 20 MG TAB PO SCH ×2 (08:36→19:51)
[2020-05-17] MEDS: PREGABALIN 75 MG CAPSULE PO SCH (08:36)
[2020-05-17] MEDS: ASCORBIC ACID 500 MG TAB PO SCH (08:36)
[2020-05-17 09:23] LABS: BASOPHILS % (AUTO) 0.2 % (0.0-5.0); HEMATOCRIT 47.2 % (42-54); MEAN CORPUSCULAR HEMOGLOBIN 28.5 pg (27.0-33.0); MEAN CORPUSCULAR HGB CONC 30.7 g/dL (32.0-36.0); MEAN CORPUSCULAR VOLUME 92.9 fL (79-99); MONOCYTES % (AUTO) 2.4 % (3.0-13.0); NEUTROPHILS % (AUTO) 94.3 % (40.0-77.0); NUCLEATED RED BLOOD CELLS 0.2 % (0.0-0.19); PLATELET COUNT (AUTO) 42 K/uL (130-400); RED BLOOD CELL COUNT(AUTO) 5.08 MIL/uL (4.50-6.20); RED CELL DISTRIBUTION WIDTH 18.9 % (11.0-15.5)
[2020-05-17 09:40] LABS: CREATININE 2.8 mg/dL (0.5-1.5)
[2020-05-17 09:51] LABS: POTASSIUM 6.3 mmol/L (3.5-5.1)
[2020-05-17] MEDS ORDERED: CALCIUM GLUCONATE 1 GM in SODIUM CHLORIDE 0.9% 100 ML IV SCH (10:45)
[2020-05-17] MEDS ORDERED: SODIUM BICARB 50MEQ 50ML VIAL IV SCH (10:45)
[2020-05-17] MEDS ORDERED: SODIUM POLYSTYRENE SULFONATE 15 GM/60 ML ML RC SCH (10:45)
[2020-05-17] MEDS ORDERED: INSULIN HUMULIN R 100 UNIT/ML 3ML IV SCH (10:45)
[2020-05-17] MEDS ORDERED: DEXTROSE 50%-WATER 50 ML DISP.SYRIN IV SCH (10:45)
[2020-05-17] MEDS: DEXTROSE 5%-WATER 1,000 ML IV SCH ×3 (11:44→22:22)
--- NOTE | 2020-05-17 11:55 | NUR ---
KAYEXALATE ADMINISTERED RECTALLY. PT. WITH INCONTINENT VOID, CARE RENDERED AND REPOSITIONED. NO SKIN BREAKDOWN NOTED.
[2020-05-17 12:42] VITALS: BP 122/65
--- NOTE | 2020-05-17 13:07 | NUR ---
REPORT TO Shalini APPIAH RN.
--- NOTE | 2020-05-17 13:30 | NUR ---
TRANSFERRED TO ROOM 431 VIA BED, ASSISTED BY JULIO HEARD, RT; PT. WITH NRB IN PLACE. BELONGINGS TRANSFERRED WITH PT.
[2020-05-17 16:32] VITALS: BP 130/71
[2020-05-17 19:50] VITALS: BP 116/65
[2020-05-17] MEDS: SIMVASTATIN 20 MG TABLET PO SCH (19:51)
[2020-05-17] MEDS: CLINIMIX E 4.25%-5% SOLUTION 2,000 ML IV SCH (21:32)
[2020-05-17 23:15] VITALS: BP 117/58
[2020-05-18 00:33] LABS: CREATININE 2.5 mg/dL (0.5-1.5)
[2020-05-18 00:40] LABS: POTASSIUM 6.3 mmol/L (3.5-5.1)
[2020-05-18 03:58] VITALS: BP 116/65
[2020-05-18 05:06] LABS: MEAN CORPUSCULAR HEMOGLOBIN 28.3 pg (27.0-33.0); MEAN CORPUSCULAR HGB CONC 30.7 g/dL (32.0-36.0); MEAN CORPUSCULAR VOLUME 92.2 fL (79-99); NUCLEATED RED BLOOD CELLS 0.2 % (0.0-0.19); PLATELET COUNT (AUTO) 46 K/uL (130-400); RED BLOOD CELL COUNT(AUTO) 4.99 MIL/uL (4.50-6.20); RED CELL DISTRIBUTION WIDTH 18.6 % (11.0-15.5); WHITE BLOOD COUNT (AUTO) 28.4 K/uL (4.8-10.8)
[2020-05-18 05:33] LABS: CREATININE 2.5 mg/dL (0.5-1.5)
[2020-05-18 05:49] LABS: POTASSIUM 6.3 mmol/L (3.5-5.1)
[2020-05-18] MEDS: LEVOTHYROXINE 25 MCG TABLET PO SCH (07:56)
[2020-05-18] MEDS: ASCORBIC ACID 500 MG TAB PO SCH (07:56)
[2020-05-18] MEDS: PREGABALIN 75 MG CAPSULE PO SCH (07:57)
[2020-05-18] MEDS: LORATADINE 10 MG TABLET PO SCH (07:57)
[2020-05-18] MEDS: MONTELUKAST SODIUM 10 MG TAB PO SCH (07:57)
[2020-05-18] MEDS: AMLODIPINE BESYLATE 2.5 MG TAB PO SCH (07:57)
[2020-05-18] MEDS: FAMOTIDINE 20MG TAB 20 MG TAB PO SCH ×2 (07:57→19:22)
[2020-05-18] MEDS: DEXAMETHASONE SOD PHOSPHATE 4 MG/ML 1ML VIAL IVP SCH (08:21)
[2020-05-18] MEDS: LORAZEPAM 2 MG/ML 1 ML VIAL IVP PRN (08:21)
[2020-05-18 08:30] VITALS: BP 103/56
[2020-05-18] MEDS ORDERED: VANCOMYCIN 1GM+NS 250ML 250 ML IV SCH (08:30)
[2020-05-18] MEDS ORDERED: VANCOMYCIN PROTOCOL PER PHARMACY IV SCH (08:30)
[2020-05-18] MEDS: SODIUM CHLORIDE IV SCH ×2 (09:14→22:31)
[2020-05-18] MEDS: CEFEPIME HCL 1 GM VIAL IVP SCH ×2 (09:14→20:23)
[2020-05-18] MEDS: STERILE WATER IV SCH ×2 (09:14→22:31)
[2020-05-18] MEDS ORDERED: VANCOMYCIN 1.25 GM in SODIUM CHLORIDE 0.9% 250 ML IV SCH (10:00)
[2020-05-18] MEDS: DILTIAZEM HCL 60 MG TABLET NG SCH ×4 (11:27→19:23)
[2020-05-18] MEDS: DILTIAZEM 125MG+100 ML NS 125 ML IV SCH (11:47)
[2020-05-18 12:00] VITALS: BP 102/65
--- NOTE | 2020-05-18 15:25 | NUR ---
FAMILY CALL BACK MADE TO BY CHARGE NURSE, NO ANSWER, CHARGE NURSE LEFT A VM WITH A CALL BACK. 2ND ATTEMPT BY LEOLA SHAH, NO ANSWER FROM .PATIENT IN BED AT THIS TIME . NAD NOTED.
[2020-05-18] MEDS: DEXTROSE 5%-WATER 1,000 ML IV SCH ×2 (16:17→22:32)
[2020-05-18 16:28] VITALS: BP 99/58
[2020-05-18] MEDS: CLINIMIX E 4.25%-5% SOLUTION 2,000 ML IV SCH (19:21)
[2020-05-18] MEDS: SIMVASTATIN 20 MG TABLET PO SCH (19:22)
[2020-05-18 19:55] VITALS: BP 115/70
[2020-05-18] MEDS ORDERED: CLINIMIX E 4.25%-5% SOLUTION 2,000 ML IV SCH (21:00)
[2020-05-18 23:10] VITALS: BP 111/61
[2020-05-19 04:30] VITALS: BP 121/89
[2020-05-19] MEDS ORDERED: VANCOMYCIN 500MG+NS 100ML 100 ML IV SCH (06:00)
[2020-05-19 07:00] VITALS: BP 109/59
[2020-05-19] MEDS: SODIUM CHLORIDE IV SCH ×2 (08:24→17:18)
[2020-05-19] MEDS: STERILE WATER IV SCH ×2 (08:24→17:18)
[2020-05-19] MEDS: PREGABALIN 75 MG CAPSULE PO SCH (08:26)
[2020-05-19] MEDS: LORATADINE 10 MG TABLET PO SCH (08:26)
[2020-05-19] MEDS: FAMOTIDINE 20MG TAB 20 MG TAB PO SCH (08:26)
[2020-05-19] MEDS: DILTIAZEM HCL 60 MG TABLET NG SCH ×2 (08:26→09:58)
[2020-05-19] MEDS: AMLODIPINE BESYLATE 2.5 MG TAB PO SCH (08:26)
[2020-05-19] MEDS: ASCORBIC ACID 500 MG TAB PO SCH (08:26)
[2020-05-19] MEDS: MONTELUKAST SODIUM 10 MG TAB PO SCH (08:27)
[2020-05-19] MEDS: LEVOTHYROXINE 25 MCG TABLET PO SCH (08:27)
[2020-05-19] MEDS: DEXTROSE 5%-WATER 1,000 ML IV SCH (09:46)
[2020-05-19] MEDS: CEFEPIME HCL 1 GM VIAL IVP SCH (09:47)
[2020-05-19] MEDS: DEXAMETHASONE SOD PHOSPHATE 4 MG/ML 1ML VIAL IVP SCH (09:47)
[2020-05-19 11:30] VITALS: BP 105/60
[2020-05-19] MEDS ORDERED: LORAZEPAM 2 MG/ML 1 ML VIAL IVP SCH (15:41)
[2020-05-19 16:00] VITALS: BP 113/56
[2020-05-19] MEDS ORDERED: MORPHINE SULFATE 2 MG/ML 1ML SYG IVP PRN (16:00)
--- NOTE | 2020-05-19 18:32 | NUR ---
Patient's visited on unit today after being cleared by front line supervisor and smelter charger. Patient's refused Bipap removal for comfort measures. Per Saskia Wang Np should be held at this time due to low SBP. Addendum: 05/19/20 at 1836 by FUNMI ZHOU RN RN Raquel Rodriguez
--- NOTE | 2020-05-19 20:13 | NUR ---
pt. at 1999. notified the charge nurse carole
--- NOTE | 2020-05-19 20:18 | NUR ---
notified spouse roger
--- NOTE | 2020-05-19 20:56 | NUR ---
text dr. ortez per answering service i was to text dr ortez. so i text him and asked who he wanted to sign the certificate and if he wanted an autopsy
--- NOTE | 2020-05-19 21:23 | NUR ---
2107 called answering service to notify of patient still waiting for md to call back
--- NOTE | 2020-05-19 22:11 | NUR ---
DR. PINO TEXT MESSAGE SENT TO DR. PINO REGARDING PTS.
--- NOTE | 2020-05-19 22:45 | NUR ---
DR. RESTREPO TEXT MESSAGE SENT TO DR. RESTREPO TO INFORM HIM THAT DR. AUSTIN HAS INSTRUCTED US TO CONTACT THE PHYSICIAN "BREWERY CELLAR WORKER" REGARDING THE SIGNING OF THE CERTIFICATE
--- NOTE | 2020-05-19 23:08 | NUR ---
spoke with mirian Artis told me that Dr. Stern will sign the certificate and there will be no autopsy.
== END 2020-05-19 20:42 | disposition expired | DRG 177 ==
LOC: EDH 10:31 → OBSVTOIN 12:15 → EDHIP 12:15 → 4BH 14:05 → 2CH 05-10 09:28 → 2DH 05-13 05:34 → 4AH 05-17 13:26
PROVIDERS: ADMIT Internal Medicine Critical Care Medicine; ATTEND Internal Medicine Critical Care Medicine
PROC: 5A09557 Assistance with Respiratory Ventilation, Greater than 96 Consecutive Hours, Continuous Positive Airway Pressure (ICD-10-PCS; principal; 2020-05-09)
PROC: XW033E5 Introduction of Remdesivir Anti-infective into Peripheral Vein, Percutaneous Approach, New Technology Group 5 (ICD-10-PCS; 2020-05-13)
PROC: XW033E5 Introduction of Remdesivir Anti-infective into Peripheral Vein, Percutaneous Approach, New Technology Group 5 (ICD-10-PCS; 2020-05-14)
DX: U07.1 COVID-19 (principal); J96.01 Acute respiratory failure with hypoxia; J12.89 Other viral pneumonia; E87.0 Hyperosmolality and hypernatremia; N17.9 Acute kidney failure, unspecified; G93.40 Encephalopathy, unspecified; I11.0 Hypertensive heart disease with heart failure; I50.9 Heart failure, unspecified; E11.9 Type 2 diabetes mellitus without complications; E78.00 Pure hypercholesterolemia, unspecified; N40.0 Benign prostatic hyperplasia without lower urinary tract symptoms; I25.10 Atherosclerotic heart disease of native coronary artery without angina pectoris; K21.9 Gastro-esophageal reflux disease without esophagitis; E03.9 Hypothyroidism, unspecified; Z66 Do not resuscitate; Z51.5 Encounter for palliative care; R13.10 Dysphagia, unspecified; E78.5 Hyperlipidemia, unspecified; F41.9 Anxiety disorder, unspecified; I48.0 Paroxysmal atrial fibrillation; Z90.49 Acquired absence of other specified parts of digestive tract
CPT/HCPCS: 36415; 36600; 71045; 71250; 80048; 80053; 80076; 81001; 82728; 82803; 82948; 83615; 83735; 83880; 84100; 84145; 84484; 85025; 85027; 85378; 86140; 86850; 86900; 86901; 87040; 87088; 93005; 94660; 99291; G0378; J0610; J0692; J0696; J1100; J1650; J1815; J1940; J2060; J2920; J3370; J3490; J7050; J7070; J7131; U0003